=== PATIENT | female | born 1940 | race Caucasian/White ===

== ENCOUNTER 2017-04-04 07:44 | Emergency (ER) | payer MEDICARE, BC ==
--- NOTE | 2017-04-04 08:50 | UC ---
Lower Extremity/Ankle HPI - HPI Summary HPI Summary: Triage note "BILATERAL FOOT PAIN, PT THINKS IT IS HER GOUT ACTING UP. RIGHT FOOT SWELLING AND PAIN FOR 7 WEEKS. LAST NIGHT LEFT FOOT STARTE TO HURT. HAS RX FOR ULORIC BUT STOPED TAKING 5 DAYS AGO, CAUSES HER HEART TO RACE. WAS ON COLCHICINE IN THE PAST BUT WAS TOLD TO STOP DUE TO HER KIDNEY FAILURE" -she has been self medicating/treating with old meds she had - colchicine (was told to stop due to CKD IV when she was seen acutely here for bronchitis) and more recently with uloric. she last took that 5 days ago. She asks if she can take her 's allopurinol. She does not see rheum. She has had sx for 7 wks on/off but has not gone to her PCP for this. -she was on prednisone for bronchitis. On insulin and checks glucoses. not > 400. last a1c not optimally controlled at 8. - History of Current Complaint Chief Complaint: UCLowerExtremity Stated Complaint: BILATERAL FEET - GOUT Time Seen by Provider: 04/04/17 08:46 - Allergies/Home Medications Allergies/Adverse Reactions: Allergies Allergy/AdvReac Type Severity Reaction Status Date / Time Ciprofloxacin [From Cipro] Allergy Severe CAN'T Verified 04/04/17 08:02 BREATH Morphine Allergy Severe RASH AND Verified 04/04/17 08:02 HALLUCINATIONS Penicillins Allergy Intermediate Hives Verified 04/04/17 08:02 Sulfa Drugs Allergy Rash Verified 04/04/17 08:02 Home Medications: Home Medications Acetaminophen [Tylenol 8 Hour Arthritis] 650 mg PO Q8H PRN 04/04/17 [History Confirmed 04/04/17] Aspirin EC Low Dose* [Ecotrin EC Low Dose 81 MG*] 81 mg PO DAILY 04/04/17 [ History Confirmed 04/04/17] Atenolol TAB* [Tenormin TAB* 50 MG] 50 mg PO DAILY 04/04/17 [History Confirmed 04/04/17] Atorvastatin* [Lipitor*] 20 mg PO QPM 04/04/17 [History Confirmed 04/04/17] Biotin 1 mg PO DAILY 04/04/17 [History Confirmed 04/04/17] Febuxostat(NF) [Uloric(NF)] 80 mg PO 04/04/17 [History] PMH/Surg Hx/FS Hx/Imm Hx Previously Healthy: Yes Endocrine History Of: Reports: Diabetes Cardiovascular History Of: Reports: Cardiac Disorders - BYPASS, 6 STENTS, Hypertension GI/ History Of: Reports: 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 - Surgical History Surgical History: Yes Surgery Procedure, Year, and Place: cabg/stentsx5/choly/left kidney removed/ hysterectomy/ - Family History Known Family History: Positive: Diabetes - Social History Alcohol Use: Rare Substance Use Type: None Smoking Status (MU): Former Smoker When Did the Patient Quit Smoking/Using Tobacco: 1981 Review of Systems Constitutional: Negative Skin: Negative Eyes: Negative ENT: Negative Respiratory: Negative Cardiovascular: Negative Gastrointestinal: Negative Genitourinary: Negative Motor: Other - pain/swelling/warmth right great toe and medial ankle Neurovascular: Negative Musculoskeletal: Negative Neurological: Negative Psychological: Negative All Other Systems Reviewed And Are Negative: Yes Physical Exam Triage Information Reviewed: Yes Appearance: Well-Appearing, No Pain Distress, Well-Nourished - very pleasant Vital Signs: Initial Vital Signs Temp 99 F 04/04/17 08:12 Pulse 72 04/04/17 08:12 Resp 20 04/04/17 08:12 BP 169/70 04/04/17 08:12 Pulse Ox 100 04/04/17 08:12 Vital Signs Reviewed: Yes Eye Exam: Normal ENT Exam: Normal ENT: Positive: Pharynx normal Neck exam: Normal Neck: Positive: Supple, Nontender, No Lymphadenopathy Respiratory Exam: Normal Respiratory: Positive: Lungs clear, Normal breath sounds, No respiratory distress, No accessory muscle use Cardiovascular Exam: Normal Cardiovascular: Positive: RRR, No Murmur, Pulses Normal, Brisk Capillary Refill Abdomen Description: Positive: Nontender, Soft Musculoskeletal: Positive: Other: - rt foot - rt great toe and lateral ankle, warm, tender and swollen Neurological Exam: Normal Psychological Exam: Normal Skin Exam: Normal Lower Extremity Course/Dx - Course Course Of Treatment: We discussed that she should not self medicate. She cannot take cochicine or NSAIDs due to CKD. I explained that by taking uloric, this can stimulate tophi breakdown and cause gout flare, which is likely why she has had flare and ongoing issues for 7 weeks. Offered no treatment as it is elf limited vs treatment with prednisone with which I reviewed potential side effects that could be heightened bc recent treatment with prednisone for bronchitis. Sh eopts for treatment with prednisone. I stressed that she should not self medicate/self treat bc dangers especially with CKD Stage IV. We discussed risks of prednisone including but not limited to anxiety, agitation, insomnia, GI upset, elevated blood pressures and blood sugar readings, adrenal crisis and avascular necrosis of the hip. - Differential Dx/Diagnosis Differential Diagnosis/HQI/PQRI: Arthritis, Bursitis, Contusion, Sprain, Strain , Tendonitis Provider Diagnoses: Gout, CKD STage IV, single kidney Discharge - Discharge Plan Condition: Stable Disposition: HOME Prescriptions: Methylprednisolone [Medrol Dosepak 4 MG*] 4 mg PO DAILY #1 rizwan Patient Education Materials: Gout (ED), Prednisone (By mouth) Referrals: Roberto Clark MD [Primary Care Provider] - 2 Days Additional Instructions: We discussed that you should not self medicate. You cannot take cochicine or NSAIDs due to CKD. I explained that by taking uloric, this can stimulate tophi breakdown and cause gout flare, which is likely why you had had flare and ongoing issues for 7 weeks. I have explained that gout flare is self-limiting meaning that it will eventually go away on it's own and offered that as a treatment option. The only other option for you that is safest for your kidneys is a low dose prednisone taper that has many risks that we discussed including raising your blood sugars. You opted for the prednisone treatment. Watch your blood sugars closely adn go to ER if > 400 or any confusion, weakness, feeling sweaty, etc. It would probably be a good idea to be referred to a home advisor for the gout management because of your complicated medical history.
[2017-04-04 09:55] VITALS: BP 132/63
== END 2017-04-04 09:58 | disposition home or self-care (01) ==
LOC: UCCORT 07:44
DX: M10.072 Idiopathic gout, left ankle and foot (principal); M10.071 Idiopathic gout, right ankle and foot; I12.9 Hypertensive chronic kidney disease with stage 1 through stage 4 chronic kidney disease, or unspecified chronic kidney disease; E11.22 Type 2 diabetes mellitus with diabetic chronic kidney disease; N18.4 Chronic kidney disease, stage 4 (severe); Z90.5 Acquired absence of kidney; Z95.1 Presence of aortocoronary bypass graft; Z88.1 Allergy status to other antibiotic agents; Z88.5 Allergy status to narcotic agent; Z88.0 Allergy status to penicillin; Z88.2 Allergy status to sulfonamides; Z87.891 Personal history of nicotine dependence
CPT/HCPCS: 99212; G0463

== ENCOUNTER 2017-12-26 11:07 | Emergency (ER) | payer MEDICARE, BC ==
[2017-12-26 13:48] VITALS: BP 188/81
--- NOTE | 2017-12-26 14:37 | UC ---
Respiratory Complaint HPI - HPI Summary HPI Summary: 77 yo female with DM and CAD presents with 2 week hx of f/c, cough,right flank pain and suprapubic pain was hospitalized with pneumonia no n/v Is on 2nd round of antibiotics (one for UTI)...she can't remember name currently on day 5 of antibiotics for presumed pneumonia (doxy) and prednisone - History of Current Complaint Chief Complaint: UCRespiratory Stated Complaint: COUGH,WEAK Time Seen by Provider: 12/26/17 14:13 Hx Obtained From: Patient Onset/Duration: Gradual Onset, Lasting Weeks Timing: Constant Severity Initially: Moderate Severity Currently: Moderate Pain Intensity: 6 Pain Scale Used: 0-10 Numeric Character: Cough: Productive Aggravating Factors: Nothing Alleviating Factors: Nothing Associated Signs And Symptoms: Positive: Fever, Chills - Allergies/Home Medications Allergies/Adverse Reactions: Allergies Allergy/AdvReac Type Severity Reaction Status Date / Time Ciprofloxacin [From Cipro] Allergy Severe CAN'T Verified 12/26/17 13:49 BREATH Morphine Allergy Severe RASH AND Verified 12/26/17 13:49 HALLUCINATIONS Penicillins Allergy Intermediate Hives Verified 12/26/17 13:49 Sulfa Drugs Allergy Rash Verified 12/26/17 13:49 Home Medications: Home Medications DOXYcycline CAP(*) [DOXYcycline 100MG CAP(*)] 100 mg PO BID 12/26/17 [History Confirmed 12/26/17] PMH/Surg Hx/FS Hx/Imm Hx Previously Healthy: No Endocrine History: Diabetes Cardiovascular History: Cardiac Disease, Hypertension Respiratory History: Bronchitis - Surgical History Surgical History: Yes Surgery Procedure, Year, and Place: '95cabg/stentsx5/choly/left kidney removed/ hysterectomy/ - Family History Known Family History: Positive: Hypertension, Diabetes - Social History Alcohol Use: Rare Substance Use Type: None Smoking Status (MU): Former Smoker When Did the Patient Quit Smoking/Using Tobacco: 1982 Review of Systems Constitutional: Fever, Chills, Fatigue Skin: Negative Eyes: Negative ENT: Negative Respiratory: Cough Cardiovascular: Negative Gastrointestinal: Abdominal Pain - suprpubic Genitourinary: Negative Motor: Negative Neurovascular: Negative Musculoskeletal: Negative Neurological: Negative Psychological: Negative All Other Systems Reviewed And Are Negative: Yes Physical Exam Triage Information Reviewed: Yes Appearance: No Pain Distress, Ill-Appearing Vital Signs: Initial Vital Signs Temp 99.1 F 12/26/17 13:40 Pulse 83 12/26/17 13:40 Resp 18 12/26/17 13:40 BP 188/81 12/26/17 13:40 Pulse Ox 100 12/26/17 13:40 Vital Signs Reviewed: Yes Eyes: Positive: Conjunctiva Clear ENT: Positive: Uvula midline. Negative: Hearing grossly normal, Nasal congestion, Nasal drainage, Tonsillar swelling, Tonsillar exudate, Trismus, Muffled voice, Hoarse voice, Dental tenderness, Sinus tenderness Neck: Positive: Supple, Nontender, No Lymphadenopathy Respiratory: Positive: No respiratory distress, No accessory muscle use, Wheezing Cardiovascular: Positive: RRR, No Murmur Musculoskeletal: Positive: ROM Intact, No Edema Neurological: Positive: Alert Psychological Exam: Normal Skin Exam: Normal UC Diagnostic Evaluation - Laboratory O2 Sat by Pulse Oximetry: 100 - normal/not hypoxic - Radiology Xray Interpretation: Positive (See Comments) - PATCHY LINGULAR CONSOLIDATION. RECOMMEND FOLLOW-UP UNTIL RESOLUTION TO EXCLUDE UNDERLYING Radiology Interpretation Completed By: Radiologist Respiratory Course/Dx - Course Course Of Treatment: discussed with Simona Sloan NP. to [facility] via POV - Differential Dx/Diagnosis Provider Diagnoses: pneumonia Discharge - Discharge Plan Condition: Stable Disposition: TRANS HIGHER LVL OF CARE FAC Referrals: Roberto Clark MD [Primary Care Provider] - Additional Instructions: to [facility] now they are expecting you take copies of xray
--- NOTE | 2017-12-26 14:41 | RAD ---
HISTORY: Cough COMPARISONS: None VIEWS: 4: Frontal dual-energy and lateral views of the chest. FINDINGS: CARDIOMEDIASTINAL SILHOUETTE: The cardiomediastinal silhouette is normal. FRANKLIN: The franklin are normal. PLEURA: The costophrenic angles are sharp. No pleural abnormalities are noted. LUNG PARENCHYMA: There is patchy alveolar opacification of the left lower lung localizing to the lingula. ABDOMEN: The upper abdomen is clear. There is no subphrenic gas. BONES AND SOFT TISSUES: The patient is status post median sternotomy. OTHER: None. IMPRESSION: PATCHY LINGULAR CONSOLIDATION. RECOMMEND FOLLOW-UP UNTIL RESOLUTION TO EXCLUDE UNDERLYING PULMONARY PARENCHYMAL PATHOLOGY.
== END 2017-12-26 15:16 | disposition short-term general hospital (02) ==
LOC: UCCORT 11:07
DX: J18.9 Pneumonia, unspecified organism (principal); E11.9 Type 2 diabetes mellitus without complications; I25.10 Atherosclerotic heart disease of native coronary artery without angina pectoris; Z95.5 Presence of coronary angioplasty implant and graft; I10 Essential (primary) hypertension; Z87.891 Personal history of nicotine dependence; Z87.09 Personal history of other diseases of the respiratory system; Z88.3 Allergy status to other anti-infective agents; Z88.5 Allergy status to narcotic agent; Z88.0 Allergy status to penicillin; Z88.2 Allergy status to sulfonamides
CPT/HCPCS: 71046; 81003; 87086; 99212; G0463

== ENCOUNTER 2019-03-18 13:56 | Emergency (ER) | payer MEDICARE, BC ==
[2019-03-18 14:48] VITALS: BP 187/60
[2019-03-18] MEDS ORDERED: DOXYcycline CAP(*) 100 MG PO ONE (15:11)
[2019-03-18] MEDS ORDERED: Clindamycin CAP* 150 MG PO ONE (15:12)
--- NOTE | 2019-03-18 15:28 | ED ---
Bite Injury/Animal - HPI Summary HPI Summary: 78 yr old female with the complaint of cat bite to the left hand. The patient was bitten by her household cat yesterday on the dorsum of the left hand. She has some redness and swelling that is mild now. She had a tetanus shot a couple weeks ago. Her cat is up to date on rabies shots per the patient and also it is an indoor cat. No other complaints. - History of Current Complaint Chief Complaint: UCBiteInjury Stated Complaint: LEFT HAND CAT BITE Time Seen by Provider: 03/18/19 14:58 Pain Intensity: 3 - Allergies/Home Medications Allergies/Adverse Reactions: Allergies Allergy/AdvReac Type Severity Reaction Status Date / Time ciprofloxacin [From Cipro] Allergy Difficulty Verified 03/18/19 14:50 Breathing morphine Allergy Nausea Verified 03/18/19 14:50 Penicillins Allergy Hives Verified 03/18/19 14:50 Sulfa (Sulfonamide Allergy Rash Verified 03/18/19 14:50 Antibiotics) Home Medications: Home Medications Cholecalciferol TAB* [Vitamin D TAB*] 1,000 unit PO DAILY 03/18/19 [History Confirmed 03/18/19] Levothyroxine TAB* [Synthroid TAB*] 25 mcg PO 0800 03/18/19 [History Confirmed 03/18/19] PMH/Surg Hx/FS Hx/Imm Hx Endocrine/Hematology History: Reports: Hx Diabetes, Hx Thyroid Disease, 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 Cardiovascular History: Reports: Hx Angina - INFREQUENT, Hx Coronary Artery Disease - CABG AND STENTS, Hx Hypertension Comment Only: Other Cardiovascular Problems/Disorders - cabg Respiratory History: Comment Only: Other Respiratory Problems/Disorders - sob with exertion GI History: Reports: Hx Gastroesophageal Reflux Disease, Hx Hiatal Hernia, Hx Irritable Bowel Denies: Other GI Disorders History: Reports: Hx 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 , Other Problems/Disorders - LEFT CYSTIC KIDNEY- NEPHRECTOMY DONE Musculoskeletal History: Reports: Hx Arthritis - KESHIA KNEES Sensory History: Reports: Hx Cataracts Denies: Hx Contacts or Glasses, Hx Hearing Aid Opthamlomology History: Reports: Hx Cataracts Denies: Hx Contacts or Glasses Neurological History: Reports: Other Neuro Impairments/Disorders - TREMORS MOST OF THE TIME, SEEN BY MD - Surgical History Surgery Procedure, Year, and Place: cabg/stentsx5/choly/left kidney removed/ hysterectomy/ Hx Anesthesia Reactions: No Infectious Disease History: No Infectious Disease History: Denies: Traveled Outside the [place] in Last 30 Days - Family History Known Family History: Positive: Hypertension, Diabetes - Social History Alcohol Use: Rare Substance Use Type: Reports: None Smoking Status (MU): Former Smoker Review of Systems Constitutional: Negative Cardiovascular: Negative Respiratory: Negative Positive: Other - redness and swelling to left hand post cat bite. All Other Systems Reviewed And Are Negative: Yes Physical Exam Triage Information Reviewed: Yes Vital Signs On Initial Exam: Initial Vitals Temp Pulse Resp BP Pulse Ox 98.3 F 76 20 187/60 99 03/18/19 14:41 03/18/19 14:41 03/18/19 14:41 03/18/19 14:41 03/18/19 14:41 Vital Signs Reviewed: Yes Appearance: Positive: Well-Appearing, No Pain Distress Skin: Positive: Other - redness and mild swelling to the left hand dorsum over the lateral hand area. No thenar swelling. NO red streaking proximally. Eyes: Positive: EOMI ENT: Positive: Normal ENT inspection Neck: Positive: Nontender Respiratory/Lung Sounds: Positive: Clear to Auscultation, Breath Sounds Present Cardiovascular: Positive: RRR. Negative: Murmur Abdomen Description: Negative: Distended Musculoskeletal: Positive: Strength/ROM Intact Neurological: Positive: Sensory/Motor Intact, Alert, Oriented to Person Place, Time, CN Intact II-III, Normal Gait, Speech Normal Psychiatric: Positive: Normal - Brandt Coma Scale Best Eye Response: 4 - Spontaneous Best Motor Response: 6 - Obeys Commands Best Verbal Response: 5 - Oriented Coma Scale Total: 15 Diagnostics - Vital Signs Vital Signs Temp Pulse Resp BP Pulse Ox 03/18/19 14:41 98.3 F 76 20 187/60 99 - Laboratory Lab Statement: Any lab studies that have been ordered have been reviewed, and results considered in the medical decision making process. Bite Injury Course/Dx - Course Course Of Treatment: 78 yr old female with cat bite to hand. 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
== END 2019-03-18 15:45 | disposition home or self-care (01) ==
LOC: UCCORT 13:56
DX: S61.452A Open bite of left hand, initial encounter (principal); L03.90 Cellulitis, unspecified; W55.01XA Bitten by cat, initial encounter; I10 Essential (primary) hypertension; I25.10 Atherosclerotic heart disease of native coronary artery without angina pectoris; E11.9 Type 2 diabetes mellitus without complications; E07.9 Disorder of thyroid, unspecified; D64.9 Anemia, unspecified; K21.9 Gastro-esophageal reflux disease without esophagitis; K44.9 Diaphragmatic hernia without obstruction or gangrene; K58.9 Irritable bowel syndrome, unspecified; Z88.3 Allergy status to other anti-infective agents; Z88.5 Allergy status to narcotic agent; Z88.0 Allergy status to penicillin; Z88.2 Allergy status to sulfonamides; Z79.890 Hormone replacement therapy; Z95.1 Presence of aortocoronary bypass graft; Z95.2 Presence of prosthetic heart valve; Z87.891 Personal history of nicotine dependence
CPT/HCPCS: 99212; A9270-GY; G0463